=== PATIENT | female | born 1995 | race Caucasian/White ===

== ENCOUNTER 2019-09-20 18:16 | Emergency (ER) | payer OTHER ==
[~2019-09-20] VITALS: Ht 160 cm; Wt 54.4 kg
[~2019-09-20 18:16] MED LIST: APAP500 PO; HYDROCORTISONE30 G9 RE; IBUPROFEN 800800 M1 PO; LANOLIN56 GM; PRENATAL; TUCKS1 EAC1 TP
[2019-09-20] MEDS ORDERED: AMOXICILLIN 50500 MG PO (20:05)
[2019-09-20 20:16] VITALS: BP 117/66
== END 2019-09-20 20:17 | disposition home or self-care (01) ==
LOC: ER 18:16
DX: O26.892 Other specified pregnancy related conditions, second trimester (principal); R05 Cough; Z87.891 Personal history of nicotine dependence; Z3A.19 19 weeks gestation of pregnancy